=== PATIENT | female | born 2000 | race Two or more races ===

== ENCOUNTER 2024-09-28 04:17 | Emergency (ER) | payer BC, OTHER ==
[~2024-09-28] VITALS: Ht 154.9 cm; Wt 52.2 kg
[2024-09-28] MEDS ORDERED: ONDANSETRON HCL/PF 4 MG/2 ML VIAL ONE (04:41)
[2024-09-28] MEDS ORDERED: FAMOTIDINE/PF INJ 20 MG/2 ML VIAL IV ONE (04:41)
[2024-09-28] MEDS: FAMOTIDINE/PF INJ 20 MG/2 ML VIAL IV ONE (04:46)
[2024-09-28] MEDS: ONDANSETRON HCL/PF 4 MG/2 ML VIAL IVP ONE (04:46)
[2024-09-28] MEDS: IV NS 0.9% 1,000 ML BAG IV ONE (04:46)
[2024-09-28 04:55] LABS: BASOPHILS % (AUTO) 0.2 % (0.0-2.0); EOSINOPHILS % (AUTO) 0.3 % (0.0-6.0); HEMATOCRIT 42 % (33-45); HEMOGLOBIN 13.6 g/dL (11.5-14.8); LYMPHOCYTES # (AUTO) 0.4 K/uL (0.8-4.8); LYMPHOCYTES % (AUTO) 3.1 % (20.0-44.0); MEAN CORPUSCULAR HEMOGLOBIN 27 PG (26.0-33.0); MEAN CORPUSCULAR HGB CONC 32 g/dl (31.0-36.0); MEAN CORPUSCULAR VOLUME 84 fL (82-100); MONOCYTES # (AUTO) 0.9 K/uL (0.1-1.30); MONOCYTES % (AUTO) 7.1 % (2.0-12.0); NEUTROPHILS % (AUTO) 89.3 % (43.0-81.0); PLATELET COUNT (AUTO) 239 K/uL (150-450); RED BLOOD CELL COUNT(AUTO) 5.02 MIL/uL (4.0-5.2); RED CELL DISTRIBUTION WIDTH 13.8 % (11.5-15.0); WHITE BLOOD COUNT (AUTO) 12.3 K/uL (4.3-11.0)
[2024-09-28] MEDS ORDERED: Magnesium 1GM/D5W 100ML PREMIX 100 ML IV ONE (04:58)
[2024-09-28] MEDS: Magnesium 1GM/D5W 100ML PREMIX 100 ML IV ONE (05:02)
[2024-09-28 05:13] LABS: ALANINE AMINOTRANSFERASE 22 U/L (12-78); ALBUMIN 4.1 g/dL (3.4-5.0); ALKALINE PHOSPHATASE 71 U/L (46-116); ASPARTATE AMINOTRANSFERASE 20 U/L (15-37); BILIRUBIN,DIRECT 0.1 mg/dL (0.0-0.2); BILIRUBIN,TOTAL 0.6 mg/dL (0.2-1.0); CALCIUM, SERUM 9.3 mg/dL (8.5-10.1); CARBON DIOXIDE 27 mmol/L (21-32); CHLORIDE 103 mmol/L (98-107); CREATININE 0.9 mg/dL (0.6-1.3); GLUCOSE 140 mg/dL (74-106); LIPASE 23 U/L (16-77); POTASSIUM 3.8 mmol/L (3.5-5.1); SODIUM SERUM 138 mmol/L (136-145); TOTAL PROTEIN, SERUM 7.6 g/dL (6.4-8.2); UREA NITROGEN, BLOOD 12 mg/dL (7-18)
[2024-09-28] MEDS ORDERED: IOHEXOL-300 100 ML VIAL IV ONE (05:32)
[2024-09-28] MEDS ORDERED: CT SWABBABLE VALVE TRANS SET 1 EA INFUS.SET MC ONE (05:32)
[2024-09-28] MEDS ORDERED: IV NS 0.9% 250 ML IV ONE (05:32)
[2024-09-28] MEDS ORDERED: ONDA4TAB5 PO (06:24)
[2024-09-28 06:38] VITALS: BP 114/62; TEMP 97.7; O2SAT 99
== END 2024-09-28 06:38 | disposition home or self-care (01) ==
LOC: ER 04:19
DX: R11.10 Vomiting, unspecified (principal); R19.7 Diarrhea, unspecified; R30.0 Dysuria; R10.33 Periumbilical pain; R10.2 Pelvic and perineal pain
CPT/HCPCS: 99285; 74177; 96365; 96375; 93005; 85025; 80048; 83690; 80076; 36415; 84484; 84702; J3490; J2405; J7030 ×2; J7050; A4223; J3475; Q9967